=== PATIENT | male | born 1960 | race Caucasian/White ===

== ENCOUNTER 2020-11-03 20:40 | Inpatient (IN) ==
[2020-11-03 21:19] LABS: Basophils # (auto) 0.02 K/uL (0-0.2); Basophils % (auto) 0.2 %; Eosinophils # (auto) 0.06 K/uL (0-0.5); Eosinophils % (auto) 0.7 %; Hematocrit (blood only) 34.5 % (42-52); Hemoglobin 11.4 g/dL (14.0-18.0); Immature Granulocytes # (auto) 0.01 K/uL (0.00-0.02); Immature Granulocytes % (auto) 0.1 %; Lymphocytes % (auto) 12.4 %; Mean Corpuscular Hemoglobin 29.8 pg (25-34); Mean Corpuscular Volume 90.3 fL (80-100); Mean Platelet Volume 10.4 fL (7.4-10.4); Monocytes # (auto) 0.19 K/uL (0.11-0.59); Monocytes % (auto) 2.1 %; Neutrophils # (auto) 7.48 K/uL (1.4-6.5); Neutrophils % (auto) 84.5 %; Platelet Count 237 K/uL (130-400); RDW Coefficient of Variation 13.2 % (11.5-14.5); RDW Standard Deviation 43.2 fL (36.4-46.3); Red Blood Count 3.82 M/uL (4.7-6.1); White Blood Count 8.86 K/uL (4.8-10.8)
[2020-11-03 22:08] LABS: Alanine Aminotransferase 20 U/L (12-78); Albumin Level 3.3 gm/dl (3.4-5.0); Aspartate Aminotransferase 14 U/L (15-37); BUN Creatinine Ratio 11.9 (10-20); Blood Urea Nitrogen 27 mg/dl (7-18); Carbon Dioxide 17 mmol/L (21-32); Chloride 117 mmol/L (98-107); Creatinine Clr Calc Pharmacy 36.3 ml/min; Est GFR (African American) 34.6 ml/min; Est GFR (Non-African American) 29.9 ml/min; Glucose 143 mg/dl (70-99); Lipase 130 U/L (73-393); Potassium 3.5 mmol/L (3.5-5.1); Sodium 144 mmol/L (136-145)
[2020-11-03 22:09] LABS: Alkaline Phosphatase 60 U/L (45-117); Bilirubin,Total 0.3 mg/dl (0.2-1); Globulin 3.3 gm/dl (2.5-4.0); Total Protein 6.6 gm/dl (6.4-8.2); Troponin I < 0.015 ng/ml (0-0.045)
[2020-11-03 22:33] LABS: Appearance Urine Clear (Clear); Bacteria Urine Automated Negative (Negative); Bilirubin Urine Negative (Negative); Blood Urine Negative (Negative); Color Urine Yellow; Glucose Urine UA Negative (Negative); Ketones Urine Negative (Negative); Leukocyte Esterase Urine Trace (Negative); Nitrite Urine Negative (Negative); Protein Urine Negative (Negative); Specific Gravity Urine 1.014 (1.000-1.030); Urobilinogen Urine Negative (Negative); pH Urine 5.5 (4.5-7.5)
[2020-11-03] MEDS ORDERED: SODIUM CHLORIDE 0.9% 1000ML 1,000 ML IV ONE (23:00)
[2020-11-03] MEDS ORDERED: PANTOprazole 80 MG in DEXTROSE 5% 100 ML IV STA (23:00)
--- NOTE | 2020-11-03 23:12 | Emergency Department Note ---
Impression & Plan Syncope, Acute upper GI bleed, Anemia, Acute dehydration ED Provider Note Name: KARRIE WRIGHT Age: 60 Sex: M Arrives Via: Ambulance Informant: Patient ED Provider: Ignacio Wellington MD Chief Complaint: Vomiting Impression: As Above Medical Decision Makin yr old male with history of CAD s/p stenting, CKD, HTN, HLP, BPH arrives for evaluation after syncope while working in heat this evening. On further discussion admits multiple syncope, vomiting blood earlier (denies black/bloody stools). No neuro deficits, no headache, no neck pain and appears well on initial evaluation. Labs with Cr improving from what he reports was previous. Anemia is new per patient though he is unsure of previous Hgb. He is on ASA/Plavix, is not on any anti-acid and he notes increasing gerd symptoms recently. He is dehydrated by exam, and also apparently may have eaten bad food earlier, but in setting of syncope, upper gi bleed and his cardiac history will need hospitalization. Given IV protonix and IV fluids. With no neuro symptoms nor headache, no head trauma, I do not feel that neuro imaging indicated emergently. Triage/Nursing Notes reviewed by Me Differentials:Infection, dehydration, metabolic abnormality, hy po/hyperglycemia, electrolyte disturbance, anemia, hypoxia, cardiac sources, intracerebral event, toxicologic, neurologic, as well as other pathologies. Vital Signs: reviewed and remarkable for no significant abnormalities Interventions: saline lock, nss bolus, protonix iv Labs:Reviewed and remarkable for anemia, ckd EKG:Per My Interpretation: Indication Syncope: NSR 71 bpm, qtc 449. No Ectopy. No Ischemia. No previous for comparison Cardiac/Tele Monitoring: Cardiac Monitoring: An Order was placed for continuous cardiac monitoring. The monitor shows a rate of 70 with a normal sinus rhythm. Consults:Dr Jabier ROCA Hospitalist Plan: Disposition:Hospitalization. Condition: Good History of Present Illness:60 yr old male arrives for evaluation of syncope. 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 Notes heat and lightheaded while loading. Notes multiple episodes synope and vomiting. No headache, neuro deficits, vision changes, weakness. Mild epigastric discomfort last few days with reflux symptoms. No known black/bloody stool. Vomited small amounts of blood and then brown emesis this evening. currently mildly lightheaded, denies any abdominal pain, current nausea, chest pain, sob, leg pain, calf swelling/pain, leg swelling, fevers, chills, neck pain, nor other symptoms. History of CKD with recent Cr 3.0 at home. Zofran by EMS helped nausea. Tried cold towel to forehead without improvement. Sitting down made better, working in heat makes worse. He is on ASA/Plavix for [place]. He does not take Motrin, ETC. Denies any syncopal history. ROS: See above HPI for pertinent positives & negatives. A total of 10 systems reviewed and were otherwise negative. Past Medical History:TN, CKD, GERD Past Surgical History:Right inguinal hernia, foot surgery Family History:Denies DVT/PE history Social History:From [place], daily smoker Home Medications:See Below Allergies:None (previously asa) Vitals:Blood Pressure: 150/87, Pulse 78, RR 20, T 36.9C, O2 98% on RA Physical Exam: GENERAL: Patient is tired appearing and in minimal distress. Dehydrated EYES: No scleral icterus, unremarkable pupils. ENT: Mucous membranes dry, no nasal congestion. NECK: No masses appreciated, nomeningismus, trachea is midline. RESPIRATORY: No dyspnea. Clear to auscultation and equal bilaterally. No wheeze, no rhonchi. CARDIOVASCULAR: Regular rate and rhythm.No murmurs, rubs, gallops appreciated. GASTROINTESTINAL: Abdomen soft, non-tender, no peritonitis.Bowel sounds positive.No masses appreciated. BACK: No midline tenderness, no CVA tenderness EXTREMITIES: Normal motion all extremities, no cyanosis, no edema. NEUROLOGIC: Alert and oriented, no acute motor or sensory deficits, no focal weakness, cranial nerves grossly intact. SKIN: No rash, no jaundice, no diaphoresis. PSYCH: Appropriate GCS: 15 ED Course: Times/Reassessments: stable, feeling well Ignacio Wellington MD Past Med/Surg History Social History Smoking Status: Current some day smoker Tobacco Type: Cigarettes Cigarettes Per Day: changes with stress level, some days 1/2 pack; Second Hand Exposure: No; Hx Alcohol Use: No Hx Substance Use: No Preferred Language: Trinidadian Communication Ability: Effective Beliefs That Will Affect Care: None Current Living Situation: Spouse and Family Current Living Situation Comment: lives with and father in law Other Information That Helps Us Care for You: No Feels Safe at Home: Yes Safety Concerns: Feels Safe At This Time Assistive Devices: Glasses Allergies Allergies Allergy/AdvReac Type Severity Reaction Status Date / Time No Known Allergies Allergy Unverified 11/03/20 21:50 Home Meds Home Medications Medication Instructions Recorded Confirmed aspirin 81 mg tablet,delayed 81 mg PO QAM 11/03/20 11/03/20 release (Aspirin Low Dose) carvedilol 3.125 mg tablet 3.125 mg PO BID 11/03/20 11/03/20 clopidogrel 75 mg tablet 75 mg PO QAM 11/03/20 11/03/20 fluticasone propionate 50 2 spray INTRANASAL DAILY PRN 11/03/20 11/03/20 mcg/actuation nasal spray,suspension ipratropium bromide 21 mcg (0.03 2 spray INTRANASAL BID PRN 11/03/20 11/03/20 %) nasal spray melatonin 10 mg tablet 10 mg PO HS PRN 11/03/20 11/03/20 rosuvastatin 20 mg tablet 20 mg PO DAILY 11/03/20 11/03/20 sitagliptin 100 mg-metformin ER 1 tab PO DAILY 11/03/20 11/03/20 1,000 mg tablet,extended [id number] (Janumet XR) tamsulosin 0.4 mg capsule 0.4 mg PO QAM 11/03/20 11/03/20 Results & Data (ED) Vital Signs Vital Signs - 24 hr 11/03/20 20:51 11/03/20 20:59 11/04/20 00:38 Temperature 36.9 C Temperature Source Oral Pulse Rate 67 78 67 Pulse Rate from SpO2 Sensor 67 61 Pulse Rhythm Regular Respiratory Rate 21 20 15 Blood Pressure 150/87 H 150/87 H 148/76 H Blood Pressure Mean 108 108 100 Pulse Oximetry 98 98 97 Oxygen Delivery Method Room Air Sepsis Recent Fever Within 48 Hours No Sepsis New/Unexplained Change in Mental Status No Sepsis Action Taken by Nursing No Action Required Laboratory Data Result diagrams: 11/04/20 04:24 11/03/20 21:05 Lab Results 11/03/20 11/03/20 11/03/20 Range/Units 20:15 21:05 22:15 WBC 8.86 (4.8-10.8) K/uL RBC 3.82 L (4.7-6.1) M/uL Hgb 11.4 L (14.0-18.0) g/dL Hct 34.5 L (42-52) % MCV 90.3 (80-100) fL MCH 29.8 (25-34) pg MCHC 33.0 (32-36) g/dL RDW Std Deviation 43.2 (36.4-46.3) fL RDW Coeff of Dorothy 13.2 (11.5-14.5) % Plt Count 237 (130-400) K/uL MPV 10.4 (7.4-10.4) fL Immature Gran % (Auto) 0.1 % Neut % (Auto) 84.5 % Lymph % (Auto) 12.4 % [place] % (Auto) 2.1 % Eos % (Auto) 0.7 % Baso % (Auto) 0.2 % Neut # (Auto) 7.48 H (1.4-6.5) K/uL Lymph # (Auto) 1.10 L (1.2-3.4) K/uL [place] # (Auto) 0.19 (0.11-0.59) K/uL Eos # (Auto) 0.06 (0-0.5) K/uL Baso # (Auto) 0.02 (0-0.2) K/uL Immature Gran # (Auto) 0.01 (0.00-0.02) K/uL Sodium 144 (136-145) mmol/L Potassium 3.5 (3.5-5.1) mmol/L Chloride 117 H (98-107) mmol/L Carbon Dioxide 17 L (21-32) mmol/L Anion Gap 10.0 (3-11) BUN 27 H (7-18) mg/dl Creatinine 2.28 H (0.6-1.4) mg/dl Est Cr Clr Drug Dosing 36.3 ml/min Est GFR ( Amer) 34.6 ml/min Est GFR (Non-Af Amer) 29.9 ml/min BUN/Creatinine Ratio 11.9 (10-20) Glucose 143 H (70-99) mg/dl Calcium 8.0 L (8.5-10.1) mg/dl Total Bilirubin 0.3 (0.2-1) mg/dl AST 14 L (15-37) U/L ALT 20 (12-78) U/L Alkaline Phosphatase 60 (45-117) U/L Troponin I < 0.015 (0-0.045) ng/ml Total Protein 6.6 (6.4-8.2) gm/dl Albumin 3.3 L (3.4-5.0) gm/dl Globulin 3.3 (2.5-4.0) gm/dl Albumin/Globulin Ratio 1.0 (0.9-2) Lipase 130 (73-393) U/L Specimen Hemolysis Urine Color Yellow Urine Appearance Clear (Clear) Urine pH 5.5 (4.5-7.5) Ur Specific [place] 1.014 (1.000-1.030) Urine Protein Negative (Negative) Urine Glucose (UA) Negative (Negative) Urine Ketones Negative (Negative) Urine Blood Negative (Negative) Urine Nitrite Negative (Negative) Urine Bilirubin Negative (Negative) Urine Urobilinogen Negative (Negative) Ur Leukocyte Esterase Trace H (Negative) Urine WBC (Auto) 1-5 (0-5) /hpf Urine RBC (Auto) 5-10 H (0-4) /hpf U Hyaline Cast (Auto) 1-5 (0-5) /lpf U Epithel Cells (Auto) 10-20 H (0-5) /lpf Urine Bacteria (Auto) Negative (Negative) COVID-19 Eval Order SARS-CoV-2 (PCR) (Negative) 11/03/20 11/03/20 Range/Units 23:08 23:08 WBC (4.8-10.8) K/uL RBC (4.7-6.1) M/uL Hgb (14.0-18.0) g/dL Hct (42-52) % MCV (80-100) fL MCH (25-34) pg MCHC (32-36) g/dL RDW Std Deviation (36.4-46.3) fL RDW Coeff of Dorothy (11.5-14.5) % Plt Count (130-400) K/uL MPV (7.4-10.4) fL Immature Gran % (Auto) % Neut % (Auto) % Lymph % (Auto) % [place] % (Auto) % Eos % (Auto) % Baso % (Auto) % Neut # (Auto) (1.4-6.5) K/uL Lymph # (Auto) (1.2-3.4) K/uL [place] # (Auto) (0.11-0.59) K/uL Eos # (Auto) (0-0.5) K/uL Baso # (Auto) (0-0.2) K/uL Immature Gran # (Auto) (0.00-0.02) K/uL Sodium (136-145) mmol/L Potassium (3.5-5.1) mmol/L Chloride (98-107) mmol/L Carbon Dioxide (21-32) mmol/L Anion Gap (3-11) BUN (7-18) mg/dl Creatinine (0.6-1.4) mg/dl Est Cr Clr Drug Dosing ml/min Est GFR ( Amer) ml/min Est GFR (Non-Af Amer) ml/min BUN/Creatinine Ratio (10-20) Glucose (70-99) mg/dl Calcium (8.5-10.1) mg/dl Total Bilirubin (0.2-1) mg/dl AST (15-37) U/L ALT (12-78) U/L Alkaline Phosphatase (45-117) U/L Troponin I (0-0.045) ng/ml Total Protein (6.4-8.2) gm/dl Albumin (3.4-5.0) gm/dl Globulin (2.5-4.0) gm/dl Albumin/Globulin Ratio (0.9-2) Lipase (73-393) U/L Specimen Hemolysis Urine Color Urine Appearance (Clear) Urine pH (4.5-7.5) Ur Specific [place] (1.000-1.030) Urine Protein (Negative) Urine Glucose (UA) (Negative) Urine Ketones (Negative) Urine Blood (Negative) Urine Nitrite (Negative) Urine Bilirubin (Negative) Urine Urobilinogen (Negative) Ur Leukocyte Esterase (Negative) Urine WBC (Auto) (0-5) /hpf Urine RBC (Auto) (0-4) /hpf U Hyaline Cast (Auto) (0-5) /lpf U Epithel Cells (Auto) (0-5) /lpf Urine Bacteria (Auto) (Negative) COVID-19 Eval Order Covid19 at [facility] SARS-CoV-2 (PCR) NEGATIVE (Negative) Administered Medications Sodium Chloride (Nss 1000ml) 1,000 mls @ 100 mls/hr IV .Q10H YULIET Stop: 12/04/20 04:10 Last Admin: 11/04/20 04:33 Dose: 100 mls/hr Documented by: [id number] Discontinued Medications Sodium Chloride (Nss 1000ml) 1,000 mls @ 999 mls/hr IV .Q1H1M ONE Stop: 11/04/20 00:00 Last Infusion: 11/04/20 00:27 Dose: 0 mls/hr Documented by: [id number] Admin: 11/03/20 23:13 Dose: 999 mls/hr Documented by: [id number] Pantoprazole Sodium 80 mg/ (Dextrose) 100 mls @ 400 mls/hr IV ONE STA Stop: 11/03/20 23:14 Last Infusion: 11/04/20 00:27 Dose: 0 mls/hr Documented by: [id number] Admin: 11/03/20 23:31 Dose: 400 mls/hr Documented by: [id number] Discharge Plan Visit Data Chief Complaint: Vomiting Stated Complaint: VOMITING ED Provider: Ignacio Wellington Discharge Problem: Syncope, Acute upper GI bleed, Anemia, Acute dehydration Patient Disposition: Admitted As Inpatient Discharge Instructions Interventions: ED Discharge Assessment Last Done: 11/04/20 03:14 Discharge Problem: Syncope Qualifiers: Syncope type: unspecified Qualified Code(s): R55 - Syncope and collapse Anemia Qualifiers: Anemia type: other cause Other causes of anemia: acute posthemorrhagic Qualified Code(s): D62 - Acute posthemorrhagic anemia
--- NOTE | 2020-11-04 00:51 | History & Physical Report ---
Date of Service November 04, 2020 Assessment & Plan (1) Acute upper GI bleed: Plan: Acute upper GI bleed/vomiting of brown material- Hold aspirin and clopidogrel Continue Protonix drip begun in the ED Serial H&H's NPO Consult gastroenterology Question where this episode may have been toxin induced food poisoning, due to the proximity with which his symptoms began after eating an egg salad sandwich (2) Syncope: Plan: Near syncopal episodes that preceded the above vomiting. May have been a vagal process associated with vomiting itself, or may be secondary to toxin induced food poisoning (3) Anemia: Plan: Hemoglobin 11.4 upon admission, with no baseline for reference. H&H as noted above (4) Acute dehydration: Plan: Acute dehydration/renal insufficiency- Creatinine 2.28 upon admission, with unknown baseline Placed on NSS at 100 mils per hour (5) Renal insufficiency: Plan: See above Repeat laboratories in a.m. (6) CAD (coronary artery disease): Plan: CAD/hypertension/stented coronary artery x 6- Hold aspirin and clopidogrel as noted above Continue carvedilol 3.125 mg p.o. twice daily with hold parameters (7) Hypertension: Plan: See above (8) Stented coronary artery: Plan: See above (9) Allergic rhinitis: Plan: Continue Flonase nasal spray as needed (10) Diabetes mellitus: Plan: Hold sitagliptin and Metformin Placed on Accu-Cheks before meals and at bedtime with NovoLog coverage per scale Check hemoglobin A1c (11) BPH w urinary obs/LUTS: Plan: Hold tamsulosin for now History of Present Illness Chief Complaint: The patient presents to the emergency department with several episodes of near syncope earlier in the day today, followed by vomiting of brown material. 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 Patient presents with symptoms as noted above. Upon further questioning, patient had made an egg salad sandwich out of pre-hard boiled eggs that he purchased from a store at around 12:00 this afternoon. He began to develop lightheadedness and dizziness around 1:00 in the afternoon, which he thought was due to being dehydrated, and shortly thereafter had to run to the bathroom to vomit, where he vomited brown material into the sink. He reports that after vomiting he did develop abdominal cramping, and had some loose stools. Allergies Allergy/AdvReac Type Severity Reaction Status Date / Time No Known Allergies Allergy Unverified 11/03/20 21:50 Home Medications Medication Instructions Recorded Confirmed Type aspirin 81 mg tablet,delayed 81 mg PO QAM 11/03/20 11/03/20 History release (Aspirin Low Dose) carvedilol 3.125 mg tablet 3.125 mg PO BID 11/03/20 11/03/20 History clopidogrel 75 mg tablet 75 mg PO QAM 11/03/20 11/03/20 History fluticasone propionate 50 2 spray INTRANASAL DAILY PRN 11/03/20 11/03/20 History mcg/actuation nasal spray,suspension ipratropium bromide 21 mcg (0.03 2 spray INTRANASAL BID PRN 11/03/20 11/03/20 History %) nasal spray melatonin 10 mg tablet 10 mg PO HS PRN 11/03/20 11/03/20 History rosuvastatin 20 mg tablet 20 mg PO DAILY 11/03/20 11/03/20 History sitagliptin 100 mg-metformin ER 1 tab PO DAILY 11/03/20 11/03/20 History 1,000 mg tablet,extended [id number] (Janumet XR) tamsulosin 0.4 mg capsule 0.4 mg PO QAM 11/03/20 11/03/20 History Past Med/Surg History Medical History (Updated 11/04/20 @ 05:12 by Rm Eugene MD) Allergic rhinitis BPH w urinary obs/LUTS CAD (coronary artery disease) Diabetes mellitus Hypertension Surgical History (Updated 11/04/20 @ 05:12 by Rm Eugene MD) Stented coronary artery Social History Smoking Status: Current some day smoker Tobacco Type: Cigarettes Cigarettes Per Day: changes with stress level, some days 1/2 pack; Second Hand Exposure: No; Hx Alcohol Use: No Hx Substance Use: No Preferred Language: Finnish Communication Ability: Effective Beliefs That Will Affect Care: None Current Living Situation: Spouse and Family Current Living Situation Comment: lives with and father in law Other Information That Helps Us Care for You: No Feels Safe at Home: Yes Safety Concerns: Feels Safe At This Time Assistive Devices: Glasses Review of Systems Review of Systems: The patient denies chest pain, palpitations, shortness of breath, dyspnea on exertion, cough, lower extremity swelling, sore throat, fevers, chills, sweats, blood in urine or stool, dysuria, urinary frequency or urgency, lightheadedness, dizziness, headache, memory loss, loss of consciousness, rash, abnormal bruising or bleeding, imbalance, focal or generalized weakness, numbness or tingling in arms or legs, generalized arthralgias or myalgias, back or neck pain, or night sweats. The review of systems is otherwise negative other than for that already noted above, and at least 10 systems have been reviewed. Physical Exam Physical Exam: The patient is awake, alert and oriented 3, well developed and well nourished, normocephalic and atraumatic, lying in bed and in no acute distress. HEENT--PERRL, EOMI, mucous membranes and oropharynx dry. Neck--supple. No JVD. No bruits. Thyroid normal, trachea midline, no adenopathy. Heart--normal S1 and S2. No murmurs, rubs or gallops. Lungs--clear bilaterally, no respiratory distress, no accessory muscle use. Abdomen--normal bowel sounds and soft. Nontender. Nondistended, no hernias or masses, no organomegaly. Extremities--no cyanosis or clubbing. No edema. Dermatologic--normal skin turgor, normal color, no abnormal lymph nodes, no rash. Neurologic--cranial nerves II through XII grossly intact. Rheumatologic--normal range of motion. Psychiatric--normal affect. Results & Data Results & Data ([facility]) Vital Signs (Past 12 Hours) Vital Signs Temp Pulse Resp BP Pulse Ox 11/03/20 20:59 98.4 F 78 20 150/87 H 98 11/03/20 20:51 67 21 150/87 H 98 Laboratory Results Laboratory Results WBC 8.86 K/uL (4.8-10.8) 11/03/20 20:15 RBC 3.82 M/uL (4.7-6.1) L 11/03/20 20:15 Hgb 12.2 g/dL (14.0-18.0) L 11/04/20 04:24 Hct 37.3 % (42-52) L 11/04/20 04:24 MCV 90.3 fL (80-100) 11/03/20 20:15 MCH 29.8 pg (25-34) 11/03/20 20:15 MCHC 33.0 g/dL (32-36) 11/03/20 20:15 RDW Std Deviation 43.2 fL (36.4-46.3) 11/03/20 20:15 RDW Coeff of Dorothy 13.2 % (11.5-14.5) 11/03/20 20:15 Plt Count 237 K/uL (130-400) 11/03/20 20:15 MPV 10.4 fL (7.4-10.4) 11/03/20 20:15 Immature Gran % (Auto) 0.1 % 11/03/20 20:15 Neut % (Auto) 84.5 % 11/03/20 20:15 Lymph % (Auto) 12.4 % 11/03/20 20:15 [place] % (Auto) 2.1 % 11/03/20 20:15 Eos % (Auto) 0.7 % 11/03/20 20:15 Baso % (Auto) 0.2 % 11/03/20 20:15 Neut # (Auto) 7.48 K/uL (1.4-6.5) H 11/03/20 20:15 Lymph # (Auto) 1.10 K/uL (1.2-3.4) L 11/03/20 20:15 [place] # (Auto) 0.19 K/uL (0.11-0.59) 11/03/20 20:15 Eos # (Auto) 0.06 K/uL (0-0.5) 11/03/20 20:15 Baso # (Auto) 0.02 K/uL (0-0.2) 11/03/20 20:15 Immature Gran # (Auto) 0.01 K/uL (0.00-0.02) 11/03/20 20:15 Sodium 144 mmol/L (136-145) 11/03/20 21:05 Potassium 3.5 mmol/L (3.5-5.1) 11/03/20 21:05 Chloride 117 mmol/L (98-107) H 11/03/20 21:05 Carbon Dioxide 17 mmol/L (21-32) L 11/03/20 21:05 Anion Gap 10.0 (3-11) 11/03/20 21:05 BUN 27 mg/dl (7-18) H 11/03/20 21: Creatinine 2.28 mg/dl (0.6-1.4) H 11/03/20 21:05 Est Cr Clr Drug Dosing 36.3 ml/min 11/03/20 21:05 Est GFR ( Amer) 34.6 ml/min 11/03/20 21: Est GFR (Non-Af Amer) 29.9 ml/min 11/03/20 21:05 BUN/Creatinine Ratio 11.9 (10-20) 11/03/20 21: Glucose 143 mg/dl (70-99) H 11/03/20 21: Calcium 8.0 mg/dl (8.5-10.1) L 11/03/20 21: Total Bilirubin 0.3 mg/dl (0.2-1) 11/03/20 21: AST 14 U/L (15-37) L 11/03/20 21: ALT 20 U/L (12-78) 11/03/20 21:05 Alkaline Phosphatase 60 U/L (45-117) 11/03/20 21: Troponin I < 0.015 ng/ml (0-0.045) 11/03/20 21: Total Protein 6.6 gm/dl (6.4-8.2) 11/03/20 21: Albumin 3.3 gm/dl (3.4-5.0) L 11/03/20: Globulin 3.3 gm/dl (2.5-4.0) 11/03/20 21: Albumin/Globulin Ratio 1.0 (0.9-2) 11/03/20 21: Lipase 130 U/L (73-393) 11/03/20 21: Specimen Hemolysis 11/03/20 21: Urine Color Yellow 11/03/20 22:15 Urine Appearance Clear (Clear) 11/03/20 22: Urine pH 5.5 (4.5-7.5) 11/03/20 22:15 Ur Specific [place] 1.014 (1.000-1.030) 11/03/20 22:15 Urine Protein Negative (Negative) 07/26/21 22:15 Urine Glucose (UA) Negative (Negative) 11/03/20 22:15 Urine Ketones Negative (Negative) 11/03/20 22:15 Urine Blood Negative (Negative) 11/03/20 22:15 Urine Nitrite Negative (Negative) 11/03/20 22:15 Urine Bilirubin Negative (Negative) 11/03/20 22:15 Urine Urobilinogen Negative (Negative) 11/03/20 22:15 Ur Leukocyte Esterase Trace (Negative) H 11/03/20 22:15 Urine WBC (Auto) 1-5 /hpf (0-5) 11/03/20 22:15 Urine RBC (Auto) 5-10 /hpf (0-4) H 11/03/20 22:15 U Hyaline Cast (Auto) 1-5 /lpf (0-5) 11/03/20 22:15 U Epithel Cells (Auto) 10-20 /lpf (0-5) H 11/03/20 22:15 Urine Bacteria (Auto) Negative (Negative) 11/03/20 22:15 COVID-19 Eval Order Covid19 at [facility] 11/03/20 23:08 SARS-CoV-2 (PCR) NEGATIVE (Negative) 11/03/20 23:08 Code Status & VTE Plan Code Status Full code VTE Prophylaxis Plan VTE Prophylaxis will be ordered: Yes PG Care Time/CCT Total # of Minutes Spent Total Time Spent with Patient: Total time spent is greater than 50% in coordination of care (as documented) at patient's floor/unit and/or counseling patient: Coding Level of Care Code 20427 Initial Inpt Care Lvl 3 Diagnoses Syncope R55 Syncope type: unspecified Acute upper GI bleed K92.2 Anemia D62 Anemia type: other cause Other causes of anemia: acute posthemorrhagic Acute dehydration E86.0 Renal insufficiency N28.9 Hypertension I10 CAD (coronary artery disease) I25.10 Stented coronary artery Z95.5 Allergic rhinitis J30.9 Diabetes mellitus E11.9 BPH w urinary obs/LUTS N40.1; N13.8 (1) Syncope Syncope type: unspecified Qualified Code(s): R55 - Syncope and collapse (2) Anemia Anemia type: other cause Other causes of anemia: acute posthemorrhagic Qualified Code(s): D62 - Acute posthemorrhagic anemia
[2020-11-04] MEDS ORDERED: GLUCOSE 10 TABS/TUBE PO PRN (04:11)
[2020-11-04] MEDS ORDERED: CARBOHYDRATES FOR HYPOGLYCEMIA PO PRN (04:11)
[2020-11-04] MEDS ORDERED: DEXTROSE 50% 50 ML SYRINGE IV PRN (04:11)
[2020-11-04] MEDS ORDERED: ONDANSETRON INJ 2 MG/ML 2 ML VIAL IV PRN (04:11)
[2020-11-04] MEDS ORDERED: GLUCOSE 40% GEL 15 GM TUBE PO PRN (04:11)
[2020-11-04] MEDS ORDERED: GLUCAGON FOR INJ 1 MG VIAL SQ PRN (04:11)
[2020-11-04] MEDS ORDERED: MELATONIN 3 MG TAB PO PRN (04:17)
[2020-11-04] MEDS: SODIUM CHLORIDE 0.9% 1000ML 1,000 ML IV SCH ×3 (04:33→23:52)
[2020-11-04 04:49] LABS: Hematocrit (blood only) 37.3 % (42-52); Hemoglobin 12.2 g/dL (14.0-18.0)
[2020-11-04] MEDS: carvediloL 3.125 MG TAB PO SCH ×3 (05:11→17:13)
[2020-11-04] MEDS: INSULIN ASPART 100 UNITS/ML 3 ML PEN SC SCH ×4 (06:18→20:48)
[2020-11-04 07:19] LABS: Estimated Average Glucose 154 mg/dl
--- NOTE | 2020-11-04 08:45 | Electrocardiogram Report ---
Test Reason : Blood Pressure : / mmHG Vent. Rate : 071 BPM Atrial Rate : 071 BPM P-R Int : 150 ms QRS Dur : 102 ms QT Int : 414 ms P-R-T Axes : 052 -17 -03 degrees QTc Int : 449 ms Poor data quality, interpretation may be adversely affected Normal sinus rhythm Normal ECG No previous ECGs available Confirmed by Vasu Chin ([id number]) on 11/04/2020 8:44:53 AM Referred By: REFERRED SELF Confirmed By:Vasu Chin
--- NOTE | 2020-11-04 10:32 | Gastrointestinal Consultation ---
Date of Consultation November 04, 2020 Assessment & Plan (1) Hematemesis: -Continue to monitor H/H -Protonix 40 mg IV BID -Keep NPO for EGD today -Supportive care per primary team Supervising Physician Co-Signing Physician Notes Agree with PAMELA Reeder as above Abd: Soft, NT, ND, +BS Continue current therapy and supportive care Proceed with EGD now. History of Present Illness Reason for Consultation: Hematemesis Attending Physician: Bradly Cabrera History of Present Illness Patient is a 60 yo male with PMH of CKD 3, CAD with stents x 6, HTN, insomnia, HLD, DM2, & BPH. He presented after an abrupt onset of dizziness, nausea, and vo miting that ended with hematemesis. He denies a history of stomach issues before, but reports a family history of GI malignancy. He acknowledges that he ate a questionable egg sandwich prior to the onset of his symptoms. He developed abdominal pain after the episode of emesis. He denies heartburn or acid reflux. He takes Aspirin & Plavix. 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 Hemoglobin on admission was 11.4, but repeat H/H this AM is 12.2/37.3.BUN 27/Cr 2.28. Allergies Allergy/AdvReac Type Severity Reaction Status Date / Time No Known Allergies Allergy Unverified 11/03/20 21:50 Home Medications Medication Instructions Recorded Confirmed Type aspirin 81 mg tablet,delayed 81 mg PO QAM 11/03/20 11/03/20 History release (Aspirin Low Dose) carvedilol 3.125 mg tablet 3.125 mg PO BID 11/03/20 11/03/20 History clopidogrel 75 mg tablet 75 mg PO QAM 11/03/20 11/03/20 History fluticasone propionate 50 2 spray INTRANASAL DAILY PRN 11/03/20 11/03/20 History mcg/actuation nasal spray,suspension ipratropium bromide 21 mcg (0.03 2 spray INTRANASAL BID PRN 11/03/20 11/03/20 History %) nasal spray melatonin 10 mg tablet 10 mg PO HS PRN 11/03/20 11/03/20 History rosuvastatin 20 mg tablet 20 mg PO DAILY 11/03/20 11/03/20 History sitagliptin 100 mg-metformin ER 1 tab PO DAILY 11/03/20 11/03/20 History 1,000 mg tablet,extended [id number] mp (Janumet XR) tamsulosin 0.4 mg capsule 0.4 mg PO QAM 11/03/20 11/03/20 History Patient History Medical History (Updated 11/04/20 @ 10:32 by Merced Hitchcock PA-C) Allergic rhinitis BPH w urinary obs/LUTS CAD (coronary artery disease) Diabetes mellitus Hypertension Surgical History (Updated 11/04/20 @ 05:12 by Rm Eugene MD) Stented coronary artery Social History Smoking Status: Current some day smoker Tobacco Type: Cigarettes Cigarettes Per Day: changes with stress level, some days 1/2 pack; Second Hand Exposure: No; Hx Alcohol Use: No Hx Substance Use: No Preferred Language: [place] Communication Ability: Effective Beliefs That Will Affect Care: None marital status: Current Living Situation: Spouse and Family Current Living Situation Comment: lives with and father in law Other Information That Helps Us Care for You: No Feels Safe at Home: Yes Safety Concerns: Feels Safe At This Time Assistive Devices: None Review of Systems Constitutional: no fever and no chills Respiratory: no cough and no dyspnea Cardiovascular: no chest pain Gastrointestinal: + nausea, + vomiting and + coffee ground emesis Physical Exam Constitutional: well developed and well nourished Respiratory: normal respiratory effort Cardiovascular: Rate/Rhythm: regular rate Gastrointestinal (Abdomen): normal bowel sounds, soft, nontender, no hepatosplenomegaly Psychiatric: Orientation: alert and oriented x 3 Results & Data ([facility]) Vital Signs (Past 12 Hours) Vital Signs Temp Pulse Pulse Resp BP BP Pulse Ox 11/04/20 08:00 60 11/04/20 07:19 36.5 C 61 20 132/80 97 11/04/20 03:50 69 11/04/20 03:45 36.4 C L 70 18 139/81 96 11/04/20 03:14 60 13 118/71 98 11/04/20 02:00 60 13 118/71 11/04/20 01:30 67 15 118/77 11/04/20 01:00 77 14 111/61 11/04/20 00:38 67 15 148/76 H 97 PG Care Time/CCT Total # of Minutes Spent Total Time Spent with Patient: Total time spent is greater than 50% in coordination of care (as documented) at patient's floor/unit and/or counseling patient: Coding Level of Care Code 84752 Inpt Consult Level 4 Diagnoses Hematemesis K92.0
[2020-11-04 11:03] LABS: Hematocrit (blood only) 36.8 % (42-52); Hemoglobin 12.1 g/dL (14.0-18.0)
--- NOTE | 2020-11-04 12:12 | Anesthesiology Consultation ---
Date of Service November 04, 2020 Assessment & Plan (1) Encounter for pre-operative examination: Chart Review Chart Review: Acceptable Risk for Surgery and Patient NOT seen in Pre Admission Testing Consults Requested none ASA ASA3 Proposed Anesthesia Anesthesia Type: MAC Risk / Benefits Reviewed With: PT / POA / Parent / Guardian, Accepts Plan and Informed Consent Obtained History Surgery Operation Date: 11/04/20 16:00 Proposed Procedures p Esophagogastroduodenoscopy Dr Ramirez - Chilo Lacy Case, DO Height/Weight Height: 5 ft 7 in Weight: 88 kg Allergies Allergy/AdvReac Type Severity Reaction Status Date / Time No Known Allergies Allergy Unverified 11/03/20 21:50 Medications Home Medications Medication Instructions Recorded Confirmed Last Taken aspirin 81 mg tablet,delayed 81 mg PO QAM 11/03/20 11/03/20 11/03/20 release (Aspirin Low Dose) carvedilol 3.125 mg tablet 3.125 mg PO BID 11/03/20 11/03/20 11/03/20 clopidogrel 75 mg tablet 75 mg PO QAM 11/03/20 11/03/20 11/03/20 fluticasone propionate 50 2 spray INTRANASAL DAILY PRN 11/03/20 11/03/20 Unknown mcg/actuation nasal spray,suspension ipratropium bromide 21 mcg (0.03 2 spray INTRANASAL BID PRN 11/03/20 11/03/20 Unknown %) nasal spray melatonin 10 mg tablet 10 mg PO HS PRN 11/03/20 11/03/20 Unknown rosuvastatin 20 mg tablet 20 mg PO DAILY 11/03/20 11/03/20 11/03/20 sitagliptin 100 mg-metformin ER 1 tab PO DAILY 11/03/20 11/03/20 11/03/20 1,000 mg tablet,extended [id number] mp (Janumet XR) tamsulosin 0.4 mg capsule 0.4 mg PO QAM 11/03/20 11/03/20 11/03/20 Active Medications Generic Name Dose Route Start Last Admin Trade Name Freq PRN Reason Stop Dose Admin Carvedilol 3.125 mg 11/04/20 04:11 11/04/20 08:49 Carvedilol 3.125 Mg Tab PO 12/04/20 04:10 Not Given BID YULIET Sodium Chloride 1,000 mls @ 100 mls/hr 11/04/20 04:11 11/04/20 04:33 Nss 1000ml IV 12/04/20 04:10 100 mls/hr .Q10H YULIET Administration Insulin Aspart 0 units 11/04/20 06:00 11/04/20 06:18 Insulin Aspart 100 Units/Ml 3 Ml Pen SC 12/04/20 05:59 Not Given Q6 YULIET NPO Date Last Intake of Fluids: 11/03/20 Time Last Intake of Fluids: 21:00 Date Last Intake of Solids: 11/03/20 Time Last Intake of Solids: 12:00 Past Medical History Medical History (Updated 11/04/20 @ 12:12 by Kye Orozco MD) Allergic rhinitis BPH w urinary obs/LUTS CAD (coronary artery disease) Diabetes mellitus Hypertension Exercise / Class Metabolic Activity II 4-5 Yardwork/Stairs/Walk up hill Past Surgical History Surgical History (Updated 11/04/20 @ 05:12 by Rm Eugene MD) Stented coronary artery Past Anesthesia History No Hx of Anesthesia Complications and No Family Hx of Anesthesia Complications History of PONV No Hx of PONV and No Hx of Motion Sickness Social History Smoking Status: Current some day smoker tobacco type: cigarettes Smoking cigarettes per day: changes with stress level, some days 1/2 pack Hx Alcohol Use: No Hx Substance Use: No Physical Exam Vital Signs Last Vital Signs Temp 36.6 C 11/04/20 11:47 Pulse 55 L 11/04/20 11:47 Resp 18 11/04/20 11:47 BP 130/82 11/04/20 11:47 Pulse Ox 93 11/04/20 11:47 ENMT Mouth: no dentition abnormality Thyromental Distance: > or= 3.5 Finger Breadths Mallampati Class: II Neck normal visual inspection Respiratory normal respiratory effort Auscultation: lungs clear to auscultation bilaterally Cardiovascular Rate/Rhythm: regular rate and regular rhythm Psychiatric Orientation: alert Testing Laboratory Results 11/04/20 09:59 11/03/20 21:05 Hemoglobin A1c 7.0 % (4.5-5.6) H 11/04/20 04:24 Urine Color Yellow 11/03/20 22:15 Urine Appearance Clear (Clear) 11/03/20 22:15 Urine pH 5.5 (4.5-7.5) 11/03/20 22:15 Ur Specific [place] 1.014 (1.000-1.030) 11/03/20 22:15 Urine Protein Negative (Negative) 11/03/20 22:15 Urine Glucose (UA) Negative (Negative) 11/03/20 22:15 Urine Ketones Negative (Negative) 11/03/20 22:15 Urine Nitrite Negative (Negative) 11/03/20 22:15 Ur Leukocyte Esterase Trace (Negative) H 11/03/20 22:15 Urine WBC (Auto) 1-5 /hpf (0-5) 11/03/20 22:15 Urine RBC (Auto) 5-10 /hpf (0-4) H 11/03/20 22:15 U Hyaline Cast (Auto) 1-5 /lpf (0-5) 11/03/20 22:15 U Epithel Cells (Auto) 10-20 /lpf (0-5) H 11/03/20 22:15 Urine Bacteria (Auto) Negative (Negative) 11/03/20 22:15 11/04/20 11/04/20 11/04/20 11:24 07:17 06:07 POC Glucose 116 H 110 H 108 H
[2020-11-04] MEDS ORDERED: Nursing to Pharmacy Communication SCH ×2 (12:30→14:45)
[2020-11-04] MEDS ORDERED: LIDOCAINE 2% 2 ML VIAL/AMP(20MG/ML) INFIL ONE (12:49)
[2020-11-04] MEDS ORDERED: PROPOFOL IV EMULSION 10 MG/ML 20 ML VIAL IV ONE ×2 (12:49)
--- NOTE | 2020-11-04 12:53 | GI REPORT ---
Patient Name: Boone Chiang Procedure Date: 11/04/2020 12:24 PM Date of : 1960 Admit Type: Inpatient Age: 60 Gender: Male Attending MD: Chilo Ramirez DO Procedure: Upper GI endoscopy Providers: Chilo Ramirez DO Referring MD: Bradly Cabrera M.d. Indications: Hematemesis Medicines: Monitored Anesthesia Care Complications: No immediate complications. Estimated Blood Loss: Estimated blood loss: none. Procedure: Pre-Anesthesia Assessment: - Prior to the procedure, a History and Physical was performed, and patient medications and allergies were reviewed. The patient's tolerance of previous anesthesia was also reviewed. The risks and benefits of the procedure and the sedation options and risks were discussed with the patient. All questions were answered, and informed consent was obtained. Prior Anticoagulants: The patient has taken Plavix (clopidogrel), last dose was 2 days prior to procedure. ASA Grade Assessment: III - A patient with severe systemic disease. After reviewing the risks and benefits, the patient was deemed in satisfactory condition to undergo the procedure. After obtaining informed consent, the endoscope was passed under direct vision. Throughout the procedure, the patient's blood pressure, pulse, and oxygen saturations were monitored continuously. The Endoscope was introduced through the mouth, and advanced to the second part of duodenum. The upper GI endoscopy was accomplished without difficulty. The patient tolerated the procedure well. Findings: Moderately severe esophagitis with no bleeding was found. A 5 mm non-bleeding Dinorah-Blanco tear with stigmata of recent bleeding was found. For hemostasis, one hemostatic clip was successfully placed (MR conditional). There was no bleeding at the end of the procedure. A medium-sized hiatal hernia was present. The examined duodenum was normal. Impression: - Moderately severe reflux esophagitis. - Dinorah-Blanco tear. Clip (MR conditional) was placed. - Medium-sized hiatal hernia. - Normal examined duodenum. - No specimens collected. Recommendation: - Return patient to hospital [facility] for ongoing care. - Clear liquid diet. - Continue present medications. Chilo Ramirez DO 11/04/2020 12:53:32 PM This report has been signed electronically. Note Initiated On: 11/04/2020 12:24 PM Number of Addenda: 0 I attest to the content of the Intraoperative Record and orders documented therein, exceptions below {[id number]}
[2020-11-04] MEDS: PANTOprazole 40 MG in SYRINGE 0 ML IV SCH ×2 (13:42→20:48)
--- NOTE | 2020-11-04 15:03 | Anesthesiology Progress Note ---
Date of Service November 04, 2020 Anesthesia Post Procedure Vital Signs Vital Signs: Temp Pulse Pulse Pulse Resp BP BP 11/04/20 14:05 36.5 C 58 L 18 134/82 11/04/20 13:50 36.4 C L 62 18 130/85 11/04/20 13:35 36.3 C L 60 18 127/86 11/04/20 13:22 65 18 124/84 11/04/20 13:10 69 16 103/55 L 11/04/20 12:54 72 16 103/55 L 11/04/20 11:47 36.6 C 55 L 18 130/82 11/04/20 11:26 36.5 C 65 19 150/89 H 11/04/20 08:00 60 11/04/20 07:19 36.5 C 61 20 132/80 11/04/20 03:50 69 11/04/20 03:45 36.4 C L 70 18 139/81 11/04/20 03:14 60 13 118/71 11/04/20 02:00 60 13 118/71 11/04/20 01:30 67 15 118/77 11/04/20 01:00 77 14 111/61 11/04/20 00:38 67 15 148/76 H 11/03/20 20:59 36.9 C 78 20 150/87 H 11/03/20 20:51 67 21 150/87 H Pulse Ox 11/04/20 14:05 98 11/04/20 13:50 99 11/04/20 13:35 99 11/04/20 13:22 96 11/04/20 13:10 93 11/04/20 12:54 93 11/04/20 11:47 93 11/04/20 11:26 96 11/04/20 08:00 11/04/20 07:19 97 11/04/20 03:50 11/04/20 03:45 96 11/04/20 03:14 98 11/04/20 02:00 11/04/20 01:30 11/04/20 01:00 11/04/20 00:38 97 11/03/20 20:59 98 11/03/20 20:51 98 Transfer of Care Handoff Completed per policy Notes Mental Status: alert / awake / arousable Patient Amnestic to Procedure: Yes Nausea / Vomiting: adequately controlled Pain: adequately controlled Airway Patency, RR, SpO2: stable & adequate BP & HR: stable & adequate Hydration State: stable & adequate Anesthetic Complications: no major complications apparent
[2020-11-04 16:11] LABS: Hematocrit (blood only) 34.9 % (42-52); Hemoglobin 11.4 g/dL (14.0-18.0)
[2020-11-04] MEDS ORDERED: NURSING DECISION MEDICATION ONE (20:49)
[2020-11-04] MEDS ORDERED: COUGH DROP (SUGAR FREE) LOZ 24 LOZ/1 BOX BUCCAL PRN (20:51)
[2020-11-04 23:26] LABS: Hematocrit (blood only) 34.7 % (42-52); Hemoglobin 11.2 g/dL (14.0-18.0)
[2020-11-05] MEDS: carvediloL 3.125 MG TAB PO SCH ×2 (05:54→17:17)
[2020-11-05 07:40] LABS: Basophils # (auto) 0.06 K/uL (0-0.2); Basophils % (auto) 0.7 %; Eosinophils # (auto) 0.33 K/uL (0-0.5); Hematocrit (blood only) 35.1 % (42-52); Hemoglobin 11.6 g/dL (14.0-18.0); Immature Granulocytes # (auto) 0.01 K/uL (0.00-0.02); Immature Granulocytes % (auto) 0.1 %; Lymphocytes # (auto) 2.17 K/uL (1.2-3.4); Lymphocytes % (auto) 26.2 %; Mean Corpuscular Hemoglobin 30.9 pg (25-34); Mean Corpuscular Volume 93.6 fL (80-100); Mean Platelet Volume 10.2 fL (7.4-10.4); Monocytes # (auto) 0.58 K/uL (0.11-0.59); Neutrophils # (auto) 5.14 K/uL (1.4-6.5); Platelet Count 218 K/uL (130-400); RDW Coefficient of Variation 13.8 % (11.5-14.5); RDW Standard Deviation 47.1 fL (36.4-46.3); Red Blood Count 3.75 M/uL (4.7-6.1); White Blood Count 8.29 K/uL (4.8-10.8)
[2020-11-05 08:04] LABS: Albumin Level 3.2 gm/dl (3.4-5.0); BUN Creatinine Ratio 9.8 (10-20); Calcium 8.2 mg/dl (8.5-10.1); Creatinine Clr Calc Pharmacy 30.1 ml/min; Est GFR (African American) 27.3 ml/min; Est GFR (Non-African American) 23.6 ml/min
[2020-11-05 08:07] LABS: Albumin Globulin Ratio 1.1 (0.9-2); Bilirubin,Total 0.7 mg/dl (0.2-1); Total Protein 6.2 gm/dl (6.4-8.2)
[2020-11-05] MEDS: INSULIN ASPART 100 UNITS/ML 3 ML PEN SC SCH ×4 (08:20→21:07)
[2020-11-05] MEDS: PANTOprazole 40 MG in SYRINGE 0 ML IV SCH ×2 (08:28→20:59)
--- NOTE | 2020-11-05 09:27 | Gastroenterology Progress Note ---
Date of Service November 05, 2020 Assessment & Plan (1) Esophagitis: (2) Dinorah-Blanco tear: Plan: -Protonix 40 mg BID on discharge with plans to taper to once daily after 8 weeks. -Recommend outpatient follow-up when he returns back to his home state. Admission and Anticipated Discharge Date Admission Date: November 04, 2020 Supervising Physician Co-Signing Physician Notes Agree with PAMELA Reeder as above Abd: Soft, NT, ND, +BS Feeling better today, without overt GI bleeding. Does have some intermittent nausea, improved by Zofran PRN Continue current therapy and supportive care Will need to followup with GI at home in 6 weeks. Subjective Patient is a 60 yo male with esophagitis and Dinorah-Blanco tear noted on EGD on 11/04/20. Patient's H/H is stable at 11.6/35.1. Patient denies further physical issues this morning but does express that he wants to know when he can leave the hospital. Review of Systems Constitutional: no fatigue Respiratory: no dyspnea Gastrointestinal: no abdominal pain, no coffee ground emesis, no blood in stools and no melena Physical Exam Constitutional: well developed Respiratory: normal respiratory effort Gastrointestinal (Abdomen): Inspection/Auscultation: abdomen normal to inspection Psychiatric: Orientation: alert and oriented x 3 Results & Data Results & Data ([facility]) Vital Signs (Past 12 Hours) Vital Signs Temp Pulse Pulse Resp BP Pulse Ox 11/05/20 08:00 60 11/05/20 07:53 36.5 C 59 L 19 154/87 H 92 11/05/20 02:41 36.6 C 59 L 16 128/84 94 11/04/20 22:43 36.7 C 65 18 147/83 H 95 PG Care Time/CCT Total # of Minutes Spent Total Time Spent with Patient: Total time spent is greater than 50% in coordination of care (as documented) at patient's floor/unit and/or counseling patient: Coding Level of Care Code 32154 Subseq Hosp Care Lvl 2 Diagnoses Esophagitis K20.90 Dinorah-Blanco tear K22.6
[2020-11-05] MEDS: SODIUM CHLORIDE 0.9% 1000ML 1,000 ML IV SCH ×2 (10:38→20:03)
[2020-11-05] MEDS ORDERED: LACTATED RINGER'S 1,000 ML IV SCH (13:15)
[2020-11-05] MEDS ORDERED: OXYBUTYNIN CHLORIDE 5 MG TAB PO STA (19:21)
[2020-11-05] MEDS: ROSUVASTATIN CALCIUM 20 MG TAB PO SCH (19:54)
--- NOTE | 2020-11-05 21:19 | Hospitalist Progress Note ---
Date of Service November 05, 2020 Assessment & Plan (1) Acute upper GI bleed: Plan: Acute upper GI bleed/vomiting of brown material- Dinorah Brina tear noted on EGD. Hold aspirin and clopidogrel Now on PPI BID. will place on a soft diet. Consult gastroenterology This does not appear to be food poisoning, perhpas due to heat related illness, as he was in the sun for an auction. Food poisoning appears unlikely due to the fact that his had the same meal. (2) Syncope: Plan: Near syncopal episodes that preceded the above vomiting. May have been a vagal process associated with vomiting itself, or may be secondary to toxin induced food poisoning (3) Anemia: Plan: Hemoglobin 11.4 upon admission, with no baseline for reference. H&H as noted above (4) Acute dehydration: Plan: Acute dehydration/renal insufficiency- CKD stage 4. Creatinine 2.28 upon admission. His baseline is actually worse. will monitor. continue NSS at 100 mils per hour (5) Renal insufficiency: Plan: See above Repeat laboratories in a.m. (6) CAD (coronary artery disease): Plan: CAD/hypertension/stented coronary artery x 6- Hold aspirin and clopidogrel as noted above Continue carvedilol 3.125 mg p.o. twice daily with hold parameters (7) Hypertension: Plan: See above (8) Stented coronary artery: Plan: See above (9) Allergic rhinitis: Plan: Continue Flonase nasal spray as needed (10) Diabetes mellitus: Plan: Hold sitagliptin and Metformin Placed on Accu-Cheks before meals and at bedtime with NovoLog coverage per scale Check hemoglobin A1c (11) BPH w urinary obs/LUTS: Plan: Hold tamsulosin for now Admission and Anticipated Discharge Date Admission Date: November 05, 2020 Subjective Patient reports still feeling dizzy when he stands up. He is also hungry and is asking for food. Review of Systems Review of Systems: All systems reviewed & are unremarkable except as noted in HPI & below Physical Exam Physical Exam: The patient is awake, alert and oriented 3, well developed and well nourished, normocephalic and atraumatic, lying in bed and in no acute distress. HEENT--PERRL, EOMI, mucous membranes and oropharynx dry. Neck--supple. No JVD. No bruits. Thyroid normal, trachea midline, no adenopathy. Heart--normal S1 and S2. No murmurs, rubs or gallops. Lungs--clear bilaterally, no respiratory distress, no accessory muscle use. Abdomen--normal bowel sounds and soft. Nontender. Nondistended, no hernias or masses, no organomegaly. Extremities--no cyanosis or clubbing. No edema. Dermatologic--normal skin turgor, normal color, no abnormal lymph nodes, no rash. Neurologic--cranial nerves II through XII grossly intact. Rheumatologic--normal range of motion. Psychiatric--normal affect. Results & Data Results & Data ([facility]) Vital Signs (Past 12 Hours) Vital Signs Temp Pulse Pulse Resp BP Pulse Ox 11/05/20 19:34 36.8 C 60 18 169/90 H 95 11/05/20 15:00 55 L 11/05/20 11:58 36.7 C 56 L 20 145/77 H 96 PG Care Time/CCT Total # of Minutes Spent Total Time Spent with Patient: Total time spent is greater than 50% in coordination of care (as documented) at patient's floor/unit and/or counseling patient: Coding Level of Care Code 09166 Subseq Hosp Care Lvl 3 Diagnoses Acute upper GI bleed K92.2 Syncope R55 Syncope type: unspecified Anemia D62 Anemia type: other cause Other causes of anemia: acute posthemorrhagic Acute dehydration E86.0 Renal insufficiency N28.9 CAD (coronary artery disease) I25.10 Hypertension I10 Stented coronary artery Z95.5 Allergic rhinitis J30.9 Diabetes mellitus E11.9 BPH w urinary obs/LUTS N40.1; N13.8 Time Spent (min) 35 (1) Syncope Syncope type: unspecified Qualified Code(s): R55 - Syncope and collapse (2) Anemia Anemia type: other cause Other causes of anemia: acute posthemorrhagic Qualified Code(s): D62 - Acute posthemorrhagic anemia
[2020-11-06] MEDS: carvediloL 3.125 MG TAB PO SCH ×2 (05:57→18:22)
[2020-11-06] MEDS: SODIUM CHLORIDE 0.9% 1000ML 1,000 ML IV SCH (06:01)
[2020-11-06 07:34] LABS: Basophils # (auto) 0.02 K/uL (0-0.2); Basophils % (auto) 0.3 %; Eosinophils # (auto) 0.26 K/uL (0-0.5); Eosinophils % (auto) 3.3 %; Hematocrit (blood only) 34.5 % (42-52); Hemoglobin 11.1 g/dL (14.0-18.0); Immature Granulocytes # (auto) 0.01 K/uL (0.00-0.02); Immature Granulocytes % (auto) 0.1 %; Lymphocytes # (auto) 2.24 K/uL (1.2-3.4); Mean Corpuscular Hgb Conc 32.2 g/dL (32-36); Mean Corpuscular Volume 93.2 fL (80-100); Mean Platelet Volume 10.2 fL (7.4-10.4); Monocytes # (auto) 0.52 K/uL (0.11-0.59); Monocytes % (auto) 6.5 %; Neutrophils # (auto) 4.94 K/uL (1.4-6.5); Neutrophils % (auto) 61.8 %; Platelet Count 207 K/uL (130-400); RDW Coefficient of Variation 13.5 % (11.5-14.5); RDW Standard Deviation 46.2 fL (36.4-46.3); White Blood Count 7.99 K/uL (4.8-10.8)
[2020-11-06 08:10] LABS: Albumin Level 2.8 gm/dl (3.4-5.0); BUN Creatinine Ratio 8.8 (10-20); Calcium 7.9 mg/dl (8.5-10.1); Creatinine Clr Calc Pharmacy 27.8 ml/min; Est GFR (African American) 24.9 ml/min; Est GFR (Non-African American) 21.5 ml/min; Potassium 4.1 mmol/L (3.5-5.1)
[2020-11-06 08:13] LABS: Albumin Globulin Ratio 0.9 (0.9-2); Bilirubin,Total 0.6 mg/dl (0.2-1); Total Protein 5.8 gm/dl (6.4-8.2)
[2020-11-06] MEDS: TAMSULOSIN HCL 0.4 MG CAP PO SCH (08:15)
[2020-11-06] MEDS: PANTOprazole 40 MG in SYRINGE 0 ML IV SCH ×2 (08:16→20:29)
[2020-11-06] MEDS: INSULIN ASPART 100 UNITS/ML 3 ML PEN SC SCH ×4 (09:04→20:21)
[2020-11-06] MEDS ORDERED: SODIUM CHLORIDE 0.45 % 1,000 ML IV SCH (14:00)
--- NOTE | 2020-11-06 16:04 | XRay Report ---
XR orbits for MRI HISTORY: 60 years-old Male Screening for foreign body for MRI COMPARISON: None TECHNIQUE: 3 views of the orbits FINDINGS: No opaque foreign body in the orbits. Mastoid air cells and paranasal sinuses are clear. No acute fac ial bone fracture. IMPRESSION: No opaque foreign body of the orbits. ACT 112: Negative or not required by law. The above report was generated using voice recognition software. It may contain grammatical, syntax o r spelling errors. Electronically signed by: Smith Paredes M.D. 11/06/2020 4:03 PM
--- NOTE | 2020-11-06 16:12 | CT Scan Report ---
CT lumbar spine wo con CLINICAL HISTORY: pain in lower back COMPARISON STUDY: No previous studies for comparison. TECHNIQUE: Axial images of the lumbar spine were obtained without IV contrast. Sagittal and coronal r econstructions were viewed. Automated exposure control was utilized for the study. A dose lowering t echnique was utilized adhering to the principles of ALARA. FINDINGS: For purposes of numbering on this exam, the L5-S1 disc space is assigned to axial image 312 of 363. Alignment of the lumbar spine is anatomic. Vertebral body heights are maintained. There is n o acute fracture. There is no suspicious lesion. Note is made of moderate disc space narrowing with o steophytosis and vacuum disc phenomenon at L5-S1. Central canal and neural foramen are suboptimally a ssessed by CT. There is no evidence for severe central canal and neural foraminal stenosis. There is suspected mild to moderate bilateral neural foraminal stenosis at L5-S1. There is moderate osteoarthr osis of both sacroiliac joints. There is bilateral hydroureteronephrosis, partially imaged on this ex am. The urinary bladder is partially imaged and likely distended with possible wall thickening. IMPRESSION: 1. No acute lumbar spine fracture or subluxation. 2. Moderate degenerative disc disease and facet arthrosis at L5-S1. No evidence for severe central ca nal or neural foraminal stenosis. Suboptimal evaluation of the central canal and neural foramen given CT technique. 3. Bilateral hydroureteronephrosis, likely severe on the left. Distended bladder with bladder wall th ickening. These findings are partially imaged on this examination. A CT of the abdomen and pelvis wit hout contrast could be obtained for further evaluation. ACT 112: Negative or not required by law. Electronically signed by: Patrick Gee M.D. 11/06/2020 4:10 PM
--- NOTE | 2020-11-06 17:17 | Magnetic Resonance Report ---
MRI OF THE BRAIN WITHOUT CONTRAST CLINICAL HISTORY: dizziness COMPARISON STUDY: None. TECHNIQUE: Utilizing a 1.5 Soni magnet and dedicated coil, multiplanar, multiecho imaging of the bra in was performed without IV contrast. FINDINGS: No foci of restricted diffusion to suggest acute infarct. No acute intracranial hemorrhage, midline shift or mass effect is present. Ventricular system is unremarkable. Basal cisterns are thapa nt. There are no extra axial collections. Flow-voids for the major intracranial vessels are present. No intracranial masses are identified on this unenhanced examination. Calvarial signal is normal. IMPRESSION: No acute intracranial findings. ACT 112: Negative or not required by law. Electronically signed by: Patrick Gee M.D. 11/06/2020 5:16 PM
[2020-11-06] MEDS: ROSUVASTATIN CALCIUM 20 MG TAB PO SCH (20:29)
--- NOTE | 2020-11-06 22:29 | Hospitalist Progress Note ---
Date of Service November 06, 2020 Assessment & Plan (1) Acute upper GI bleed: Plan: Acute upper GI bleed/vomiting of brown material- Dinorah Brina tear noted on EGD. Hold aspirin and clopidogrel Now on PPI BID. will place on a soft diet. Consult gastroenterology This does not appear to be food poisoning, perhpas due to heat related illness, as he was [place] the sun [place]. Food poisoning appears unlikely due to the fact that his had the same meal. (2) Urinary retention: Plan: Patient is having urinary retention. CT scan of lumbar spine shows bilateral hydronephrosis. May be neurogenic bladder from poorly controlled diabetes. will consult urology as patient is not able to tolerate saba, however, depsite self cathing, patient does not appear to be effectively voiding. (3) Syncope: Plan: Near syncopal episodes that preceded the above vomiting. Like heat induced. Patient continues to have vertiginous symptoms. Will obtain MRI of brain. (4) Anemia: Plan: Hemoglobin 11.4 upon admission, with no baseline for reference. H&H as noted above (5) Acute dehydration: Plan: Acute dehydration/renal insufficiency- CKD stage 4. Creatinine 2.28 upon admission. His baseline is actually worse. will monitor. continue NSS at 100 mils per hour (6) Renal insufficiency: Plan: See above Repeat laboratories in a.m. (7) CAD (coronary artery disease): Plan: CAD/hypertension/stented coronary artery x 6- Hold aspirin and clopidogrel as noted above Continue carvedilol 3.125 mg p.o. twice daily with hold parameters (8) Hypertension: Plan: See above (9) Stented coronary artery: Plan: See above (10) Allergic rhinitis: Plan: Continue Flonase nasal spray as needed (11) Diabetes mellitus: Plan: Hold sitagliptin and Metformin Placed on Accu-Cheks before meals and at bedtime with NovoLog coverage per scale Check hemoglobin A1c (12) BPH w urinary obs/LUTS: Plan: Hold tamsulosin for now Admission and Anticipated Discharge Date Admission Date: November 05, 2020 Subjective Patient reports that he continues to have vertiginous symtpoms. He also reports that he did not tolerate his saba catheter, He reports some bleeding overnight. Review of Systems Review of Systems: All systems reviewed & are unremarkable except as noted in HPI & below Physical Exam Physical Exam: The patient is awake, alert and oriented 3, well developed and well nourished, normocephalic and atraumatic, lying in bed and in no acute distress. HEENT--PERRL, EOMI, mucous membranes and oropharynx dry. Neck--supple. No JVD. No bruits. Thyroid normal, trachea midline, no adenopathy. Heart--normal S1 and S2. No murmurs, rubs or gallops. Lungs--clear bilaterally, no respiratory distress, no accessory muscle use. Abdomen--normal bowel sounds and soft. Nontender. Nondistended, no hernias or masses, no organomegaly. Extremities--no cyanosis or clubbing. No edema. Dermatologic--normal skin turgor, normal color, no abnormal lymph nodes, no rash. Neurologic--cranial nerves II through XII grossly intact. Rheumatologic--normal range of motion. Psychiatric--normal affect. Results & Data Results & Data ([facility]) Vital Signs (Past 12 Hours) Vital Signs Temp Pulse Pulse Resp BP Pulse Ox 11/06/20 20:15 36.8 C 59 L 18 157/80 H 94 11/06/20 15:17 65 18 168/89 H 92 11/06/20 15:16 63 18 160/85 H 94 11/06/20 15:11 56 L 18 161/83 H 95 11/06/20 14:42 37.2 C 55 L 17 159/80 H 92 11/06/20 12:13 36.7 C 59 L 20 155/82 H 94 PG Care Time/CCT Total # of Minutes Spent Total Time Spent with Patient: Total time spent is greater than 50% in coordination of care (as documented) at patient's floor/unit and/or counseling patient: Coding Level of Care Code 46746 Subseq Hosp Care Lvl 3 Diagnoses Acute upper GI bleed K92.2 Syncope R55 Syncope type: unspecified Anemia D62 Anemia type: other cause Other causes of anemia: acute posthemorrhagic Acute dehydration E86.0 Renal insufficiency N28.9 CAD (coronary artery disease) I25.10 Hypertension I10 Stented coronary artery Z95.5 Allergic rhinitis J30.9 Diabetes mellitus E11.9 BPH w urinary obs/LUTS N40.1; N13.8 Urinary retention R33.9 Time Spent (min) 40 (1) Anemia Anemia type: other cause Other causes of anemia: acute posthemorrhagic Qualified Code(s): D62 - Acute posthemorrhagic anemia (2) Syncope Syncope type: unspecified Qualified Code(s): R55 - Syncope and collapse
--- NOTE | 2020-11-06 23:26 | Urology Consultation ---
Date of Consultation November 06, 2020 Assessment & Plan (1) Urinary retention: Hydronephrosis noted on patient's imaging is likely related to chronic urinary retention. I recommended to the patient we proceed as follows: Maintain Flomax at current dose I recommended to the patient that a trial of bladder rest with Conroy decompression may be beneficial however the patient notes that he is intolerant to Conroy catheter as it causes severe bladder spasm Patient is intolerant to Conroy catheter in his bladder I recommended that he continues to straight cath himself multiple times per day in order to prevent overstretching of his bladder muscle As patient is from out of town I recommended that he maintain close outpatient follow-up with his home urologist and elastic yarn twister helper History of Present Illness Reason for Consultation: Urinary retention and hydronephrosis Attending Physician: Bradly Cabrera History of Present Illness Is a 60-year-old male who lives in [place] and 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 He was in [facility] when he developed a GI bleed which prompted admission to [facility]. Been asked to see this patient secondary to hydronephrosis that was identified on imaging along with history of urinary retention. Question patient on his urologic history and the patient says that he has a chronic history of urinary retention requiring self-catheterization. Due to the patient's job he says that he can only straight cath himself approximately 3 times per day as opposed to the recommended 5-6 times. The patient states that he takes Flomax which greatly assist him in urination. He says when he misses several doses of this medication he tends to retain more urine. Concerning the patient's urinary habits he says that he does not have any urinary hesitancy and notes that he has a strong urine stream. Concerning urinary retention the patient says that he is diabetic and he has been retaining urine for quite some time and he cannot tell if his bladder is completely emptied. He has seen a elastic yarn twister helper in his hometown [place] and he is also seen a urologist who have not made any additional recommendations other than taking Flomax and straight cathing himself. While patient was at [facility] he did have a Conroy catheter in place which caused severe bladder spasms for which he insisted the catheter be removed. Patient does deny any fevers, shakes, chills. He denies any abdominal pain. He denies any back pain.Imaging that the patient has undergone was reviewed and patient did have a lumbar spine CT scan which identified bilateral hydronephrosis which is more severe on the left. Patient was also noted to have a distended bladder with bladder wall thickening. The patient has had a urinalysis this admission which did not identify any evidence of urinary tract infection At the time of my interview the patient was resting comfortably in bed he was in no distress. Allergies Allergy/AdvReac Type Severity Reaction Status Date / Time No Known Allergies Allergy Unverified 11/03/20 21:50 Home Medications Medication Instructions Recorded Confirmed Type aspirin 81 mg tablet,delayed 81 mg PO QAM 11/03/20 11/03/20 History release (Aspirin Low Dose) carvedilol 3.125 mg tablet 3.125 mg PO BID 11/03/20 11/03/20 History clopidogrel 75 mg tablet 75 mg PO QAM 11/03/20 11/03/20 History fluticasone propionate 50 2 spray INTRANASAL DAILY PRN 11/03/20 11/03/20 History mcg/actuation nasal spray,suspension ipratropium bromide 21 mcg (0.03 2 spray INTRANASAL BID PRN 11/03/20 11/03/20 History %) nasal spray melatonin 10 mg tablet 10 mg PO HS PRN 11/03/20 11/03/20 History rosuvastatin 20 mg tablet 20 mg PO DAILY 11/03/20 11/03/20 History sitagliptin 100 mg-metformin ER 1 tab PO DAILY 11/03/20 11/03/20 History 1,000 mg tablet,extended [id number] (Janumet XR) tamsulosin 0.4 mg capsule 0.4 mg PO QAM 11/03/20 11/03/20 History Patient History Medical History Allergic rhinitis BPH w urinary obs/LUTS CAD (coronary artery disease) Diabetes mellitus Hypertension Surgical History Stented coronary artery Social History Smoking Status: Current some day smoker Tobacco Type: Cigarettes Cigarettes Per Day: changes with stress level, some days 1/2 pack; Second Hand Exposure: No; Hx Alcohol Use: No Hx Substance Use: No Preferred Language: Portuguese Communication Ability: Effective Beliefs That Will Affect Care: None marital status: Current Living Situation: Spouse and Family Current Living Situation Comment: lives with and father in law Other Information That Helps Us Care for You: No Feels Safe at Home: Yes Safety Concerns: Feels Safe At This Time Assistive Devices: None Review of Systems Constitutional: no fever and no chills Eyes: no diplopia Ear, Nose, Mouth, Throat: no ear pain Respiratory: no cough and no dyspnea Cardiovascular: no chest pain Gastrointestinal: no abdominal pain Genitourinary: + as per Subjective / HPI; no difficulty urinating, no urinary frequency, no urinary hesitancy or no urinary incontinence Musculoskeletal: no back pain Integumentary: no rash Neurologic: no localized weakness Physical Exam Constitutional: well developed and well nourished; no acute distress Eyes: no conjunctival abnormality Wears glasses ENMT: Ears: no hearing impairment Nose: no external nose abnormality Neck: trachea midline Respiratory: normal respiratory effort; no respiratory distress and no labored breathing Cardiovascular: Rate/Rhythm: regular rate and regular rhythm Gastrointestinal (Abdomen): Soft, nontender, nondistended Musculoskeletal: No calf tenderness Skin: no rashes Neurologic: + does not move all extremities Results & Data ([facility]) Vital Signs (Past 12 Hours) Vital Signs Temp Pulse Pulse Resp BP Pulse Ox 11/06/20 20:15 36.8 C 59 L 18 157/80 H 94 11/06/20 15:17 65 18 168/89 H 92 11/06/20 15:16 63 18 160/85 H 94 11/06/20 15:11 56 L 18 161/83 H 95 11/06/20 14:42 37.2 C 55 L 17 159/80 H 92 11/06/20 12:13 36.7 C 59 L 20 155/82 H 94 PG Care Time/CCT Total # of Minutes Spent Total Time Spent with Patient: Total time spent is greater than 50% in coordination of care (as documented) at patient's floor/unit and/or counseling patient: Coding Level of Care Code 69787 Inpt Consult Level 5 Diagnoses Urinary retention R33.9
[2020-11-07] MEDS: carvediloL 3.125 MG TAB PO SCH (04:38)
[2020-11-07] MEDS: TAMSULOSIN HCL 0.4 MG CAP PO SCH (08:41)
[2020-11-07] MEDS: PANTOprazole 40 MG in SYRINGE 0 ML IV SCH (08:41)
[2020-11-07] MEDS: INSULIN ASPART 100 UNITS/ML 3 ML PEN SC SCH (08:45)
[2020-11-07 08:50] LABS: Hematocrit (blood only) 33.6 % (42-52); Mean Corpuscular Hemoglobin 30.1 pg (25-34); Mean Corpuscular Hgb Conc 32.7 g/dL (32-36); Mean Corpuscular Volume 92.1 fL (80-100); Platelet Count 204 K/uL (130-400); RDW Coefficient of Variation 13.1 % (11.5-14.5); RDW Standard Deviation 44.3 fL (36.4-46.3); Red Blood Count 3.65 M/uL (4.7-6.1); White Blood Count 7.15 K/uL (4.8-10.8)
[2020-11-07 09:24] LABS: BUN Creatinine Ratio 8.8 (10-20); Creatinine Clr Calc Pharmacy 26.5 ml/min; Est GFR (African American) 23.5 ml/min; Est GFR (Non-African American) 20.3 ml/min; Potassium 3.9 mmol/L (3.5-5.1)
--- NOTE | 2020-11-07 21:34 | Discharge Summary ---
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 Patient presents with symptoms as noted above. Upon further questioning, patient had made an egg salad sandwich out of pre-hard boiled eggs that he purchased from a store at around 12:00 this afternoon. He began to develop lightheadedness and dizziness around 1:00 in the afternoon, which he thought was due to being dehydrated, and shortly thereafter had to run to the bathroom to vomit, where he vomited brown material into the sink. He reports that after vomiting he did develop abdominal cramping, and had some loose stools. Principal Diagnosis Heat related illness Discharge Exam The patient is awake, alert and oriented 3, well developed and well nourished, normocephalic and atraumatic, lying in bed and in no acute distress. HEENT--PERRL, EOMI, mucous membranes and oropharynx dry. Neck--supple. No JVD. No bruits. Thyroid normal, trachea midline, no adenopathy. Heart--normal S1 and S2. No murmurs, rubs or gallops. Lungs--clear bilaterally, no respiratory distress, no accessory muscle use. Abdomen--normal bowel sounds and soft. Nontender. Nondistended, no hernias or masses, no organomegaly. Extremities--no cyanosis or clubbing. No edema. Dermatologic--normal skin turgor, normal color, no abnormal lymph nodes, no rash. Neurologic--cranial nerves II through XII grossly intact. Rheumatologic--normal range of motion. Psychiatric--normal affect. Discharge Data Allergies Allergy/AdvReac Type Severity Reaction Status Date / Time No Known Allergies Allergy Unverified 11/03/20 21:50 Consultations 11/03/20 23:00 ED Decision to Admit Stat 11/04/20 00:50 Consult Gastroenterology Routine 11/06/20 22:49 Consult Urology Routine 11/07/20 09:55 Burn CD for patient Stat Procedures Performed Operation Date: 11/04/20 16:00 Actual Procedures p EGD Hemostasis - Chilo Lacy Case, DO Ordered Studies 11/06/20 13:22 CT lumbar spine wo con Routine 11/06/20 13:33 MR brain wo con Routine Hospital Course (1) Acute upper GI bleed: 60 yo gentleman came in with : Acute upper GI bleed/vomiting of brown material- Likely a heat related illness while at the auction. Dinorah Brina tear noted on EGD. Hold aspirin and clopidogrel -Protonix 40 mg BID on discharge with plans to taper to once daily after 8 weeks. -Recommend outpatient follow-up when he returns back to his home state. Consult gastroenterology This does not appear to be food poisoning, perhaps due to heat related illness, as he was in the sun for an auction. Food poisoning appears unlikely due to the fact that his had the same meal. Patient is given a CD with the images that were completed in the hospital. (2) Urinary retention: Patient is having urinary retention. CT scan of lumbar spine shows bilateral hydronephrosis. May be neurogenic bladder from poorly controlled diabetes. will consult urology as patient is not able to tolerate saba, however, depsite self cathing, patient does not appear to be effectively voiding. Patient was seen by Urology, recommended Saba which patient refused. Recommended that patient self catheterizes 5-6 times a day as he is having hydronephrosis and is clearly not emptying his bladder in a timely fashion. Patient feels he cannot self catheterize more than 3 x in a day as he works and feels that the bathroom at work is not sanitary. He suffered a UTI due to this. Also that due to his work, he is not allowed the time to self cath. He is trying to apply for disability. Patient wants to be discharged. Patient should followup with Urology, Nephrology and PCP once he returns to [place]. This was documented below in the DISCHARGE INSTRUCTIONS. (3) Syncope: Near syncopal episodes that preceded the above vomiting. Like heat induced. Patient continues to have vertiginous symptoms. Will obtain MRI of brain.: this was negative will order meclizine PRN. (4) Anemia: Hemoglobin 11.4 upon admission, with no baseline for reference. H&H as noted above (5) Acute dehydration: Acute dehydration/renal insufficiency- CKD stage 4. Creatinine 2.28 upon admission. His baseline is actually worse. will monitor. Patient was replenished. (6) Renal insufficiency: See above His baseline is 3 as per patient. (7) CAD (coronary artery disease): CAD/hypertension/stented coronary artery x 6- Hold aspirin and clopidogrel as noted above Continue carvedilol 3.125 mg p.o. twice daily with hold parameters (8) Hypertension: See above (9) Stented coronary artery: See above (10) Allergic rhinitis: Continue Flonase nasal spray as needed (11) Diabetes mellitus: Hold sitagliptin and Metformin Placed on Accu-Cheks before meals and at bedtime with NovoLog coverage per scale Check hemoglobin A1c: 7.0 (12) BPH w urinary obs/LUTS: resume tamsulosin at discharge. Total Time Total Time Spent Total Time Spent (In Minutes): 55 Discharge Plan Discharge Items Patient Disposition: Home - Self-Care Reason For Visit: HEMATEMESIS Discharge Diagnosis: HEMATEMESIS Activity: Resume your previous activity Non-emergency contact: Primary Care Provider Call non-emergency contact if: you have any medication questions Follow-up/Referrals: PCP,NO [Physician] - Diet: Carb Consistent or DM2 Addtl Attending Provider Instructions: Protonix 40 mg BID on discharge with plans to taper to once daily after 8 weeks. -Recommend outpatient follow-up when he returns back to his home state. You have had vertigo symptoms. You may benefit from meclizine PRN. Given that you are suffering from urinary retention, an option is a saba catheter, given your creatinine has risen and you are having hydronephrosis. However, given that you are not tolerating it. We could go with oxybutynin for spasms and have saba reinserted. If you refuse, here is another option: you will need to self catheterize 5-6 times a day. Likely double of what you are doing to help relieve the pressure of your bladder. You will need to have close followup with a Overlock Elastic Attacher and Urology once you return back home. Pending Studies at Discharge: No Stand-Alone Forms: My [employer], Smoking Cessation Medications and DC Order Prescriptions: New meclizine 12.5 mg tablet 12.5 mg PO QID PRN (Reason: dizziness) Qty: 30 RF: 0 pantoprazole [address] for susp in packet 40 mg PO BID Qty: 60 RF: 0 Continued tamsulosin 0.4 mg Capsule 0.4 mg PO QAM RF: 0 carvedilol 3.125 mg Tablet 3.125 mg PO BID RF: 0 Janumet XR 100-1,000 mg Tablet, Er Multiphase 24 Hr 1 tab PO DAILY RF: 0 rosuvastatin 20 mg Tablet 20 mg PO DAILY RF: 0 melatonin 10 mg Tablet 10 mg PO HS PRN (Reason: Sleep) RF: 0 fluticasone propionate 50 mcg/actuation [place],Suspension 2 spray INTRANASAL DAILY PRN (Reason: Allergic Symptoms) RF: 0 ipratropium bromide 21 mcg (0.03 %) [place],Non-Aerosol 2 spray INTRANASAL BID PRN (Reason: Allergy Symptoms) RF: 0 Discontinued aspirin [Aspirin Low Dose] 81 mg Tablet,Delayed Release (Dr/Ec) 81 mg PO QAM RF: 0 clopidogrel 75 mg Tablet 75 mg PO QAM RF: 0 Discharge Orders: Discharge Order (Routine); Ordered 11/07/20 Ordered By: Bradly Sylvester/Other Patient Handouts: A1C, Managing Type 2 Diabetes Admission Data Admit Date/Time: 11/05/20 15:08 Attending Provider: Bradly Cabrera Admit Provider: Rm Eugene Primary Care Provider: Turner Trent Other Providers: Chilo Ramirez ; Rm Eugene ; Sudeep Perkins ; Param Duenas ; Geovani Edge ; Carolyn Mejias ; Bennie Madera ; Brittany Varma Melissa A. ; Sherlyn Stevens ; Ignacio Bradley ; Jose Denny ; Shruthi Hummel ; Joleen Stevens Other Interventions: Discharge Summary Assessment (RN) Last Done: 11/07/20 10:07 Coding Level of Care Code D/C DAY MANAGEMENT >30 MINS Diagnoses Acute upper GI bleed K92.2 Urinary retention R33.9 Syncope R55 Syncope type: unspecified Anemia D62 Anemia type: other cause Other causes of anemia: acute posthemorrhagic Acute dehydration E86.0 Renal insufficiency N28.9 CAD (coronary artery disease) I25.10 Hypertension I10 Stented coronary artery Z95.5 Allergic rhinitis J30.9 Diabetes mellitus E11.9 BPH w urinary obs/LUTS N40.1; N13.8
== END 2020-11-07 10:55 | disposition home or self-care (01) | DRG 922 ==
LOC: EDBD → 2S 20:40 → ED 20:40 → SUATTDRO 11-04 00:50 → 2S 11-04 03:14